=== PATIENT | female | born 1970 | race Caucasian/White ===

== ENCOUNTER → 2017-05-07 | Outpatient (CLI) | payer OTHER ==
--- NOTE | 2017-05-09 12:12 | Diagnostic Imaging Report ---
EXAM: Bilateral screening mammogram 2D views with tomosynthesis The current study was also evaluated with a Computer Aided Detection (CAD) system. Indication: Screening. No current complaints stated on the questionnaire. COMPARISON: 05/07/2017 FINDINGS: The breasts are composed of heterogeneously dense parenchyma which may decrease mammographic sensitivity. Punctate calcifications are seen. Allowing for technique and positional differences, no suspicious change is seen. IMPRESSION: Dense breasts with no definite change. ACR BI-RADS Category 2: Benign findings. Result letter will be mailed to the patient. Note: At least 10% of breast cancer is not imaged by mammography. Dictated by: Dictated on workstation # [id number]
== END ==
LOC: RAD 11:22
PROVIDERS: ATTEND Family Medicine
DX: Z12.31 Encounter for screening mammogram for malignant neoplasm of breast (principal)
CPT/HCPCS: 77067

== ENCOUNTER → 2019-03-30 | Outpatient (CLI) | payer OTHER ==
--- NOTE | 2019-03-30 18:03 | Diagnostic Imaging Report ---
INDICATION: Left shoulder pain radiating to the left arm. TIME OF EXAM: 2:26 p.m. FINDINGS: AP, odontoid, and lateral views of the cervical spine were obtained. There is some straightening of the normal cervical lordotic curvature. Minimal anterolisthesis of C4 on C5 is noted. There is significant degenerative disc disease at the C5-6 and C6-7 levels with disc space narrowing and marginal spurring. Prevertebral tissues are normal. Odontoid is intact. No fractures are identified. IMPRESSION: Lower cervical spondylosis. No acute bony abnormality is detected. Dictated by: Dictated on workstation # [id number]
== END ==
LOC: RAD 14:12
PROVIDERS: ATTEND Family Medicine
DX: M47.812 Spondylosis without myelopathy or radiculopathy, cervical region (principal)
CPT/HCPCS: 72040

== ENCOUNTER → 2019-04-21 | Outpatient (CLI) | payer OTHER ==
--- NOTE | 2019-04-21 13:38 | Diagnostic Imaging Report ---
PROCEDURE: MR imaging of the cervical spine without contrast. TECHNIQUE: Multiplanar, multisequence MR imaging of the cervical spine was performed without contrast. INDICATION: Left-sided neck pain and arm pain with numbness in the left fingers. COMPARISON: No prior studies are available for comparison. FINDINGS: There is some straightening of the normal cervical lordotic curvature. Vertebral body marrow signal is normal. No geographic marrow lesion is seen. The cervical cord demonstrates normal homogeneous signal intensity and normal morphology. There is some degenerative disc disease, greatest at C5-C6 and C6-C7 levels. Craniocervical junction is unremarkable. C2-C3: No central canal or neural foraminal stenosis is identified. C3-C4: No central canal or neural foraminal stenosis is identified. C4-C5: No central canal or neural foraminal stenosis is identified. C5-C6: Broad-based disc/osteophyte complex does indent the ventral thecal sac. There is also some uncovertebral joint degenerative change. This does result in moderate left neural foraminal narrowing. Right neural foramen is patent. Central canal is patent. C6-C7: Broad-based disc/osteophyte complex indents the ventral thecal sac. Uncovertebral joint degenerative change does result in moderate left neural foraminal narrowing. Right neural foramen is patent. C7-T1: No central canal or neural foraminal narrowing is seen. IMPRESSION: C5-C6 and C6-C7 degenerative disc disease and uncovertebral joint degenerative change resulting in moderate left neural foraminal narrowing. No significant central canal stenosis is seen. Dictated by: Dictated on workstation # [id number]
== END ==
LOC: RAD 12:05
PROVIDERS: ATTEND Family Medicine
DX: M50.122 Cervical disc disorder at C5-C6 level with radiculopathy (principal); M48.02 Spinal stenosis, cervical region; M47.22 Other spondylosis with radiculopathy, cervical region
CPT/HCPCS: 72141

== ENCOUNTER → 2019-08-25 | Outpatient (REF) ==
--- NOTE | 2019-08-25 11:34 | Diagnostic Imaging Report ---
INDICATION: Positive TB test. COMPARISON: None. FINDINGS: Frontal and lateral views of the chest demonstrate normal heart size and pulmonary vascularity. The lungs are clear. There are no signs of infiltrate, pleural effusions or pneumothoraces. The visualized osseous structures show no acute abnormalities. IMPRESSION: 1. No acute process. No signs of infiltrates, effusions or pneumothoraces. Dictated by: Dictated on workstation # [id number]
== END | disposition home or self-care (01) ==
LOC: MERGE 10:59 → OCC 10:59
PROVIDERS: ATTEND Nurse Practitioner Family
CPT/HCPCS: 71046

== ENCOUNTER 2020-07-25 15:23 | Outpatient (RCR) | payer OTHER | END 2020-08-25 15:46 | disposition home or self-care (01) | DX: M25.551 Pain in right hip (principal); M54.5 Low back pain; Z91.09 Other allergy status, other than to drugs and biological substances ==

== ENCOUNTER → 2020-10-03 | Outpatient (CLI) | payer OTHER ==
--- NOTE | 2020-10-04 12:22 | Diagnostic Imaging Report ---
INDICATION: Routine screening. Comparison is made with prior mammogram 05/07/2017 and 05/07/2016. 2-D and 3-D bilateral screening mammography was performed with CAD. Both breasts are heterogeneously dense, limiting the sensitivity of mammography. The parenchymal pattern is stable. No mass or malignant appearing microcalcifications are seen. Axillae are unremarkable. IMPRESSION: BI-RADS Category 1 No mammographic features suspicious for malignancy are identified. ACR BI-RADS Category 1: Negative. Result letter will be mailed to the patient. Note: At least 10% of breast cancer is not imaged by mammography. Dictated by: Dictated on workstation # [id number]
== END ==
LOC: RAD 15:27
PROVIDERS: ATTEND Family Medicine
DX: Z12.31 Encounter for screening mammogram for malignant neoplasm of breast (principal)
CPT/HCPCS: 77063; 77067

== ENCOUNTER → 2022-05-29 | Outpatient (CLI) | payer OTHER ==
--- NOTE | 2022-05-29 16:12 | Diagnostic Imaging Report ---
INDICATION: Left wrist pain. AP, oblique, and lateral views of the left wrist are obtained. FINDINGS: No fracture or acute bony abnormality is seen. There is advanced degenerative change of the first carpometacarpal joint. IMPRESSION: Advanced degenerative change of the first carpometacarpal joint. No acute fracture or acute bony abnormality. Dictated by: Dictated on workstation # [id number]
== END ==
LOC: ORTHO 10:22
PROVIDERS: ATTEND Orthopaedic Surgery
DX: M18.12 Unilateral primary osteoarthritis of first carpometacarpal joint, left hand (principal)
CPT/HCPCS: 73110; G0463; 99202

== ENCOUNTER → 2023-09-10 | Outpatient (CLI) | payer OTHER ==
--- NOTE | 2023-09-10 17:06 | Diagnostic Imaging Report ---
INDICATION: Routine screening. Comparison is made with prior mammogram from 10/03/2020 and 05/07/2017. 2-D and 3-D bilateral screening mammography was performed with CAD. Both breasts are heterogeneously dense, limiting the sensitivity of mammography. There is a density in the superior and lateral aspect of the left breast posterior depth which appears more prominent than prior exams. Additional views are recommended. The right breast is unremarkable. There are scattered benign calcifications. No malignant-appearing microcalcifications are identified. IMPRESSION: Left breast density. Additional views are recommended for further evaluation. ACR BI-RADS Category 0: Incomplete. (Needs additional imaging evaluation). Result letter will be mailed to the patient. Note: At least 10% of breast cancer is not imaged by mammography. BI-RADS 0 Dictated by: Dictated on workstation # [id number]
== END ==
LOC: RAD 15:05
PROVIDERS: ATTEND Family Medicine
DX: Z12.31 Encounter for screening mammogram for malignant neoplasm of breast (principal); N64.89 Other specified disorders of breast
CPT/HCPCS: 77063; 77067